=== PATIENT | male | born 1970 | race Caucasian/White ===

== ENCOUNTER 2018-12-25 12:31 | Outpatient (CLI) | payer OTHER | END 2018-12-25 12:32 | disposition short-term general hospital (02) | LOC: EMS 12:31 | PROVIDERS: ATTEND Surgery | DX: R07.9 Chest pain, unspecified (principal) | CPT/HCPCS: A0425; A0427 ==

== ENCOUNTER 2023-03-16 07:10 | Outpatient (CLI) | payer OTHER ==
[2023-03-16 14:35] LABS: BASOPHILS % (AUTO) 0.2 %; EOSINOPHILS # (AUTO) 0.2 10^3/uL (0.0-0.7); EOSINOPHILS % (AUTO) 4.1 %; HCT - HEMATOCRIT 51.1 % (42.0-52.0); HGB - HEMOGLOBIN 16.5 g/dL (14.0-18.0); LYMPHOCYTES # (AUTO) 1.6 10^3/uL (1.5-3.5); LYMPHOCYTES % (AUTO) 34.7 %; MEAN CORPUSCULAR HEMOGLOBIN 30.2 pg (27.0-31.0); MEAN CORPUSCULAR HGB CONC 32.3 g/dL (32.0-36.0); MEAN CORPUSCULAR VOLUME 93.6 fL (80.0-94.0); MEAN PLATELET VOLUME 9.8 fL (7.4-11.4); MONOCYTES # (AUTO) 0.6 10^3/uL (0.0-1.0); MONOCYTES % (AUTO) 12.3 %; NEUTROPHILS # (AUTO) 2.3 10^3/uL (1.5-6.6); NEUTROPHILS % (AUTO) 48.7 %; PLT - PLATELET COUNT 289 10^3/uL (130-450); RED BLOOD COUNT 5.46 10^6/uL (4.70-6.10); RED CELL DISTRIBUTION WIDTH 12.7 % (12.0-15.0); WHITE BLOOD COUNT 4.6 x10^3/uL (4.8-10.8)
[2023-03-16 14:53] LABS: BUN - BLOOD UREA NITROGEN 19 mg/dL (6-20); CARBON DIOXIDE - CO2 27 mmol/L (21-32); CHLORIDE 105 mmol/L (101-111); CREATININE 1.1 mg/dL (0.6-1.2); POTASSIUM 4.3 mmol/L (3.5-5.0); SODIUM 139 mmol/L (135-145)
[2023-03-16 14:54] LABS: ALBUMIN 3.9 g/dL (3.2-5.5); ALBUMIN/GLOBULIN RATIO 1.1 (1.0-2.2); ALKALINE PHOSPHATASE 73 IU/L (42-121); ALT ALANINE AMINOTRANSFERASE 38 IU/L (10-60); AST ASPARTATE AMINOTRANSFERASE 26 IU/L (10-42); BILIRUBIN,TOTAL 0.7 mg/dL (0.2-1.0); CHOL/HDL RATIO 2.8 (<5.0); CHOLESTEROL 193 mg/dL; GFR - MDRD 70 (>89); GLUCOSE 101 mg/dL (70-100); HDL CHOLESTEROL 70 mg/dL; LDL CHOLESTEROL,CALCULATED 106 mg/dL; LDL/HDL RATIO 1.5 (<3.6); LIPASE 38 U/L (22-51); TOTAL PROTEIN 7.4 g/dL (6.7-8.2); TRIGLYCERIDES 84 mg/dL; VLDL CHOLESTEROL 17 mg/dL
[2023-03-16 15:04] LABS: THYROID STIMULATING HORMONE 2.86 uIU/mL (0.34-5.60)
[2023-03-16 20:53] LABS: ESTIMATED AVERAGE GLUCOSE 108 mg/dL (70-100); HEMOGLOBIN A1c% 5.4 % (4.27-6.07)
== END 2023-03-16 07:11 | disposition home or self-care (01) ==
LOC: LAB.S 07:10
PROVIDERS: ATTEND Emergency Medicine
DX: Z00.00 Encounter for general adult medical examination without abnormal findings (principal); Z13.220 Encounter for screening for lipoid disorders; Z13.1 Encounter for screening for diabetes mellitus; Z12.5 Encounter for screening for malignant neoplasm of prostate
CPT/HCPCS: 36415; 80053; 80061; 83036; 83690; 83721; 84153; 84443; 85025

== ENCOUNTER 2024-04-26 07:58 | Outpatient (CLI) | payer OTHER ==
[2024-04-26 15:01] LABS: ESTIMATED AVERAGE GLUCOSE 105 mg/dL (70-100); HEMOGLOBIN A1c% 5.3 % (4.27-6.07)
[2024-04-26 15:26] LABS: ALBUMIN 4.2 g/dL (3.2-5.5); ALBUMIN/GLOBULIN RATIO 1.6 (1.0-2.2); ALKALINE PHOSPHATASE 82 IU/L (42-121); ALT ALANINE AMINOTRANSFERASE 29 IU/L (10-60); AST ASPARTATE AMINOTRANSFERASE 20 IU/L (10-42); BILIRUBIN,TOTAL 0.6 mg/dL (0.2-1.0); BUN - BLOOD UREA NITROGEN 15 mg/dL (6-20); CALCIUM 9.4 mg/dL (8.5-10.3); CARBON DIOXIDE - CO2 29 mmol/L (21-32); CHLORIDE 105 mmol/L (101-111); CHOL/HDL RATIO 2.7 (<5.0); CHOLESTEROL 158 mg/dL; GFR - MDRD 78 (>89); GLUCOSE 84 mg/dL (74-104); HDL CHOLESTEROL 58 mg/dL; LDL CHOLESTEROL,CALCULATED 74 mg/dL; LDL/HDL RATIO 1.3 (<3.6); POTASSIUM 4.2 mmol/L (3.5-4.5); SODIUM 140 mmol/L (135-145); TOTAL PROTEIN 6.8 g/dL (6.4-8.9); TRIGLYCERIDES 131 mg/dL (48-352); VLDL CHOLESTEROL 26 mg/dL
[2024-04-28 01:09] LABS: HCV AB Non Reactive (Non Reactive)
== END 2024-04-26 07:59 | disposition home or self-care (01) ==
LOC: LAB.S 07:58
PROVIDERS: ATTEND Internal Medicine
DX: Z13.1 Encounter for screening for diabetes mellitus (principal); Z11.59 Encounter for screening for other viral diseases; Z13.220 Encounter for screening for lipoid disorders; Z13.228 Encounter for screening for other metabolic disorders
CPT/HCPCS: 36415; 80053; 80061; 83036; 83721; 86803

== ENCOUNTER 2024-08-08 10:14 | Outpatient (CLI) | payer OTHER ==
--- NOTE | 2024-08-08 18:38 | CT Report ---
PROCEDURE: Lung Cancer Screen INDICATIONS: HISTORY OF SMOKING TECHNIQUE: A CT scan of the chest was performed. Intravenous contrast media was not administered. Images were re corded and evaluated at appropriate window settings. Reformats: axial MIP of the chest, coronal and s agittal. For radiation dose reduction, the following was used: automated exposure control, adjustment of mA and/or kV according to patient size. COMPARISON: None. FINDINGS: Image quality: Excellent. Prior cancer history: Unsure. Lungs and pleura: No pleural effusions. No pneumothorax. No suspicious pulmonary nodules which requi re follow up. Benign calcified granulomas are seen in the left lung. Small nonspecific opacity in the lateral lingula. Mediastinum: Heart size is normal. No pericardial effusion. No large vessel abnormality. No mediastin al adenopathy by size criteria. Chest wall and lower neck: Thyroid is unremarkable. No axillary or supraclavicular adenopathy by size . Bones: No aggressive osseous abnormality. Multilevel degenerative endplate changes with bridging ante rior osteophytes. Upper Abdomen: Unremarkable. IMPRESSION: Lung RAD: 1 - Negative. Recommendation: Continue annual screening in 12 Months with LDCT Non-Lung Significant Findings: . Small lingular opacity may be infectious or inflammatory in etiology versus secondary to atelectasis. Recommend correlation for any clinical symptoms. Reviewed by: Naman White MD on 08/08/2024 5:36 PM TRUDY Approved by: Naman White MD on 08/08/2024 5:36 PM TRUDY Station ID: [id number]
== END 2024-08-08 10:15 | disposition home or self-care (01) ==
LOC: DI 10:14
PROVIDERS: ATTEND Internal Medicine
DX: Z12.2 Encounter for screening for malignant neoplasm of respiratory organs (principal); Z87.891 Personal history of nicotine dependence